=== PATIENT | male | born 1960 | race Caucasian/White ===

== ENCOUNTER → 2020-12-16 14:47 | Outpatient (BNVA) | payer MEDICARE, OTHER, SELFPAY | PROVIDERS: Family Provider Nurse Practitioner Family; PCP Nurse Practitioner Family; Visit Provider Emergency Medicine | DX: Z20.822 Contact with and (suspected) exposure to COVID-19 (principal) | CPT/HCPCS: 87635 ==

== ENCOUNTER 2020-12-20 11:21 | Outpatient (CLI) | payer MEDICARE, OTHER, SELFPAY ==
[2020-12-20 12:14] VITALS: BP 122/77; PULSE 112; RESP 18; TEMP 37.2; O2SAT 90
[2020-12-20 14:40] VITALS: BP 96/65; PULSE 104; RESP 18; TEMP 36.1; O2SAT 92
[2020-12-20 14:51] VITALS: BP 96/65; PULSE 104; RESP 18; TEMP 36.1; O2SAT 92
--- NOTE | 2020-12-23 13:30 | DCPLANNER ---
manager commodities had message that patient received the monoclonal antibody infusion. manager commodities called phone number [phone], unable to speak with patient at this time, a voicemail was left for patient with appointment information.
== END 2020-12-20 14:50 | disposition home or self-care (01) ==
LOC: OPS 11:29
PROVIDERS: PCP Nurse Practitioner Family; Visit Provider Nurse Practitioner Family
DX: U07.1 COVID-19 (principal)
CPT/HCPCS: 96365

== ENCOUNTER 2021-01-05 14:04 | Outpatient (CLI) | payer MEDICARE, OTHER, SELFPAY ==
--- NOTE | 2021-01-05 14:15 | XRR_ITS ---
PROCEDURE INFORMATION: Exam: XR Chest Exam date and time: 01/05/2021 2:15 PM Age: 60 years old Clinical indication: Cough and shortness of breath; Additional info: Follow up covid 19/asthmatic bronchitis TECHNIQUE: Imaging protocol: XR of the chest. Views: 1 view. COMPARISON: CT Cervical Spine wo* [id number] 06/12/2017 12:47 PM FINDINGS: Lungs: Interstitial scarring at the lung bases. No focal consolidation. Pleural spaces: Unremarkable. No pleural effusion. No pneumothorax. Heart/Mediastinum: Unremarkable. No cardiomegaly. Bones/joints: Sequela of ACDF in the lower cervical spine. XR/XR chest 1V [id number] IMPRESSION: No acute findings.
== END 2021-01-05 14:05 | disposition home or self-care (01) ==
LOC: RAD 14:09
PROVIDERS: PCP Nurse Practitioner Family; Visit Provider Nurse Practitioner Family
DX: U07.1 COVID-19 (principal)
CPT/HCPCS: 71045

== ENCOUNTER 2021-11-21 16:41 | Emergency (ER) | payer MEDICARE, OTHER, SELFPAY ==
[2021-11-21 16:52] VITALS: BP 114/72; PULSE 107; RESP 18; TEMP 36.4; O2SAT 96; BMI 33.6
--- NOTE | 2021-11-21 17:34 | ECG_ITS ---
[facility] Test Date: 2021-11-21 Pat Name: Maxi Valdes Department: Room: Gender: Male Instant Printer Operator: : 1960 Requested By: Alex Sunshine Order Number: [id number] Melissa MD: Alize Garza M.D. Measurements Intervals [place] Rate: 100 P: 58 NE: 166 QRS: 4 QRSD: 79 T: 58 QT: 322 QTc: 415 Interpretive Statements SINUS TACHYCARDIA ABNORMAL RHYTHM ECG INTERPRETATION BASED ON A DEFAULT AGE OF 40 YEARS No previous ECG available for comparison Electronically Signed On 11-21-2021 22:29:38 CDT by Alize Garza M.D. [id number] f
[2021-11-21 19:03] LABS: Basophils # 0.1 10^3/uL (0.0-0.1); Eosinophils # 0.3 10^3/uL (0.0-0.8); Eosinophils % 3.2 %; Hematocrit 46.6 % (42.0-52.0); Hemoglobin 16.1 g/dL (11.7-16.6); Lymphocytes % 24.5 %; Mean Corpuscular HGB Conc 34.5 g/dL (30.0-36.0); Mean Corpuscular Hemoglobin 29.4 pg (28.0-34.0); Mean Platelet Volume 9.8 fL (7.4-10.4); Monocytes # 0.8 10^3/uL (0.2-0.9); Monocytes % 9.5 %; Neutrophils # 5.07 10^3/uL (1.8-7.7); Neutrophils % 61.3 %; Nucleated Red Blood Cells % 0 %; Platelet Count 246 10^3/cmm (130-400); Red Blood Count 5.48 10^6/uL (4.1-5.3); Red Cell Distribution Width 12.9 % (12.1-15.1); White Blood Count 8.3 10^3/uL (4.0-10.0)
[2021-11-21 19:30] LABS: Troponin(5th) Baseline 14 ng/L (0-15)
[2021-11-21 19:31] LABS: Alanine Aminotransferase 18 U/L (0-41); Albumin Level 4.9 g/dL (3.5-5.2); Alkaline Phosphatase 79 IU/L (40-130); Anion Gap 19.5 (5-19); Aspartate Amino Transferase 22 U/L (0-40); Blood Urea Nitrogen 21 mg/dL (8-23); Calcium 9.7 mg/dL (8.5-10.5); Carbon Dioxide 21 mmol/L (22-29); Chloride 102 mmol/L (98-107); Globulin 2.6 g/dL (1.3-4.6); Glomerular Filtration Rate 34.3 mL/min (90-130); Glucose 78 mg/dL (65-115); Osmolality Calculated 288 mOsm/kg (285-295); Potassium 4.5 mmol/L (3.5-5.1); Sodium 138 mmol/L (136-145); Total Bilirubin 0.4 mg/dL (0.15-1.2); Total Protein 7.5 g/dL (6.6-8.7)
--- NOTE | 2021-11-21 19:34 | ECG_ITS ---
[facility] Test Date: 2021-11-21 Pat Name: Maxi Valdes Department: Room: Gender: Male Supply Officer: : 1960 Requested By: Alex Sunshine Order Number: [id number] Melissa MD: Alize Garza M.D. Measurements Intervals [place] Rate: 74 P: 55 MA: 178 QRS: 19 QRSD: 89 T: 62 QT: 375 QTc: 418 Interpretive Statements SINUS RHYTHM Compared to ECG 11/21/2021 17:00:12 Sinus tachycardia no longer present Electronically Signed On 11-21-2021 22:41:08 CDT by Alize Garza M.D. [id number]
[2021-11-21 20:12] VITALS: BP 140/91
--- NOTE | 2021-11-21 20:12 | CTR_ITS ---
PROCEDURE INFORMATION: Exam: CT Head Without Contrast Exam date and time: 11/21/2021 9:29 PM Age: 61 years old Clinical indication: Syncope and collapse; Prior surgery; Surgery date: 6+ months; Surgery type: Cervical TECHNIQUE: Imaging protocol: Computed tomography of the head without contrast. Radiation optimization: All CT scans at this facility use at least one of these dose optimization techniques: automated exposure control; mA and/or kV adjustment per patient size (includes targeted exams where dose is matched to clinical indication); or iterative reconstruction. COMPARISON: CT head wo con* [id number] 06/12/2017 12:41 PM RADIATION DOSE METRICS: Total DLP (mGy-cm): 987.39 FINDINGS: Brain: No acute intracranial hemorrhage or mass effect. No definite acute infarct by CT. MRI could be more sensitive/specific for detection, as clinically directed. Cerebral ventricles: Ventricle size is normal for age. Paranasal sinuses: Included paranasal sinuses are essentially clear. Mastoid air cells: No significant acute finding. Bones/joints: No definite acute skull fracture. Soft tissues: No significant acute finding. CT/CT head wo con* [id number] IMPRESSION: 1. No acute intracranial hemorrhage or mass effect. 2. No definite acute infarct by CT, see above. 3. Other findings discussed above.
--- NOTE | 2021-11-21 20:16 | W.ED.GENADLT ---
HPI - General Adult General: Chief complaint: Syncope Stated complaint: passed out Time Seen by Provider: 11/21/21 19:55 History of Present Illness: HPI: [61]yo patient w/ hx of HTN presents emergency after episode of witnessed syncope. Patient was leaning against the side of the door when he suddenly blacked out. Patient denies any prodromal symptoms of nausea/vomiting, diaphoresis, tunneling of vision, spots, or other complaints. Patient does not remember what happened but was witnessed by his to be pastel briefly for a minute. Patient denies any associate chest pain, shortness of breath with the episode. His denied the patient hit his head. Patient reports a mild intermittent headache since the syncope episode. Patient could not recall the incident but denies any post-ictal confusion, tongue biting or bladder/bowel incontinence. Patient denies any prior hx of syncope in the past. No associated symptoms of chest pain, shortness of breath, palpitations or focal weakness right before the incident. No family hx of sudden cardiac or unexplained . Onset: 3pm Duration: 1 minute Location: outside Severity: moderate Associated symptoms: Deny chest pain, dyspnea, nausea, rash, palpitations or vomiting Review of Systems Const: Denies: fever(s) or chills Eyes: Denies: change in vision ENMT: Denies: mouth pain Card: Denies: chest pain or palpitations Resp: Denies: dyspnea or non-productive cough GI: Denies: abdominal pain, nausea, vomiting or diarrhea : Denies: dysuria Musc: Denies: extremity pain Skin/Breast: Denies: rash or new lesions Neuro: Reports: other (syncope and collapse); Denies: weakness in extremities Psych: Reports: other (Normal mood) Floyd/Lymph: Denies: easy bruising PFS ED PFSH: Medical History Hypertension Social History Smoking and tobacco status: never smoked Alcohol intake: never Physical Exam Const: COMMON NORMALS: alert HENMT: COMMON NORMALS: atraumatic HEAD & SCALP: atraumatic MOUTH: moist mucous membranes not abnormal Eye: COMMON NORMALS: EOMs intact bilaterally and conjunctivae normal CONJUNCTIVA: Yes conjunctivae normal Neck/C-Spine: COMMON NORMALS: full ROM and supple Resp: COMMON NORMALS: normal respiratory effort and clear to auscultation bilaterally AUSCULTATION: clear to auscultation bilaterally Cardio: COMMON NORMALS: regular rate RATE: regular rate GI: COMMON NORMALS: Soft to palpation and non-tender PALPATION: Yes Soft to palpation Extremity: COMMON NORMALS: full ROM Neuro: SENSORIUM/ORIENTATION: Yes alert MOTOR EXAM: No Abnormal motor strength present and Other motor observations present (no focal motor deficits) OTHER: Mental status? Awake, alert, and oriented to self, year, month, location, and situation.? Following simple axial and appendicular commands.? Has appropriate fund of knowledge, comprehension, and insight.? Able to recall and understands pertinent aspects of medical history and current treatment status.? ? Language? Speech is fluent without word-finding difficulties.? Intact naming, expression, medical receptionist assistant, and repetition.? ? Cranial nerves? 2,3,4,6: PERRL, EOMI with no nystagmus. 5: Intact sensation to light touch, symmetric? 7: Smile symmetrical, no facial droop.? 8: Hearing grossly intact.? 9,10: Normal palate movement.? 11: Normal strength in trapezius bilaterally 12: Tongue protrudes midline.? ? Motor examination? Normal bulk & tone. Strength as follows (R/L): Delts (5/5), Biceps (5/5), Triceps (5/5), Wrist ext (5/5), hip flexors (5/5), plantarflexors (5/5), dorsiflexors (5/5). Sensation? Light Touch: Grossly intact and equal in upper and lower extremities bilaterally? Romberg: Negative.? Distal joint position sense intact ? Coordination? Hayhjf-xm-jvwy-finger movements intact without dysmetria or past-pointing.? Rapid fingertaps: preserved amplitude without decriment.? No tremor, myoclonus or truncal ataxia.? ? Gait/stance? Steady, normal narrow base gait with appropriate arm swing and turning.? Tandem gait without hesitation or loss of balance. Psych: COMMON NORMALS: speech normal SPEECH: Yes normal speech MOOD & AFFECT: Yes euthymic mood Course Vital Signs: Vital signs: Vital Signs Temperature 97.9 F 11/21/21 22:49 Pulse Rate 75 11/21/21 22:49 Respiratory Rate 16 11/21/21 22:49 Blood Pressure 121/82 11/21/21 22:49 Pulse Oximetry 99 11/21/21 22:49 MDM - General Adult Medical Decision Making [61]yo patient w/ hx of HTN presenting to the ED with syncope and collapse at 3pm. No association with chest pain, dyspnea, palpitations, or focal neurological deficits. HDS Neuro intact. Fingerstick wnl. Given history, exam and workup, presentation not consistent with seizures given a short time course, no postictal state, no seizure activity. Low suspicion for acute neurologic catastrophes to include ICH given lack of trauma, risk factors for bleeding diathesis, or neurogenic causes of syncope. Low suspicion for vascular catastrophes to include PE, thoracic aortic dissection, AAA rupture. Presentation not consistent with acute life threatening arrhythmia, structural heart disease, electrical conduction abnormalities, or ACS. Workup: EKG, fingerstick, orthostatics, troponin x 2, EKG x 2, CT head Intervention: Serial reevaluation, telemetry, PO challenge Findings: EKG: No e/o STEMI. No evidence of Brugada?s sign, delta wave, epsilon wave, significantly prolonged QTc, HOCM or malignant arrhythmia. [10:03pm] On reassessment, patient denies any syncope or near syncope episodes in the ER. Telemetry without any dysrhythmia. Troponin x 2 wnl. EKG is non ischemic. Ct imaging negative, Patient has been able to tolerate PO and ambulate in the ER without issues. Given limited to no comorbidities, no family hx of SCD, history more consistent with situational/reflex syncope vs orthostatic/decreased fluid intake, patient is unlikely to experience sudden cardiac decompensation at this time and will NOT benefit from inpatient observation/telemetry at this time. Although the incidence of paroxysmal ventricular tachycardia/VF is very unlikely, I instructed the patient to follow up with a PCP and a Hydrogen Cell Tender for further evaluation of syncope should the patient need it. I have given patient follow up with our pillowcase folder to be seen by our outpatient Cardiology for syncope. Patient aware of a call from our pillowcase folder to schedule for appointment(s) and verbalizes understanding of the importance of following up. Disposition: Discharge. Patient is at baseline at this time. Return precautions expressed and understood in person. Advised follow up with a primary care provider or clinic physician in the next 24-48 hours. Given return instructions for any new or concerning symptoms including chest pain, focal neurological deficits, dyspnea, or any new or concerning findings. Lab Data : 11/21/21 18:47 11/21/21 18:[address] 11/21/21 20:12 IMPRESSION: 1. No acute intracranial hemorrhage or mass effect. 2. No definite acute infarct by CT, see above. 3. Other findings discussed above. Laboratory Results WBC 8.3 10^3/uL (4.0-10.0) 11/21/21 18:47 RBC 5.48 10^6/uL (4.1-5.3) H 11/21/21 18:47 Hgb 16.1 g/dL (11.7-16.6) 11/21/21 18:47 Hct 46.6 % (42.0-52.0) 11/21/21 18:47 MCV 85.0 fl (80-94) 11/21/21 18:47 MCH 29.4 pg (28.0-34.0) 11/21/21 18:47 MCHC 34.5 g/dL (30.0-36.0) 11/21/21 18:47 RDW 12.9 % (12.1-15.1) 11/21/21 18:47 Plt Count 246 10^3/cmm (130-400) 11/21/21 18:47 MPV 9.8 fL (7.4-10.4) 11/21/21 18:47 Neut % (Auto) 61.3 % 11/21/21 18:47 Lymph % (Auto) 24.5 % 11/21/21 18:47 [place]verse % (Auto) 9.5 % 11/21/21 18:47 Eos % (Auto) 3.2 % 11/21/21 18:47 Baso % (Auto) 1.0 % 11/21/21 18:47 Neut # (Auto) 5.07 10^3/uL (1.8-7.7) 11/21/21 18:47 Lymph # (Auto) 2.0 10^3/uL (0.8-4.8) 11/21/21 18:47 [place] # (Auto) 0.8 10^3/uL (0.2-0.9) 11/21/21 18:47 Eos # (Auto) 0.3 10^3/uL (0.0-0.8) 11/21/21 18:47 Baso # (Auto) 0.1 10^3/uL (0.0-0.1) 11/21/21 18:47 Nucleated RBC % (auto) 0 % 11/21/21 18:47 Nucleated RBCs # 0.0 /100WBC 11/21/21 18:47 Sodium 138 mmol/L (136-145) 11/21/21 18:47 Potassium 4.5 mmol/L (3.5-5.1) 11/21/21 18:47 Chloride 102 mmol/L (98-107) 11/21/21 18:47 Carbon Dioxide 21 mmol/L (22-29) L 11/21/21 18:47 Anion Gap 19.5 (5-19) H 11/21/21 18:47 BUN 21 mg/dL (8-23) 11/21/21 18:47 Creatinine 2.0 mg/dL (0.7-1.2) H 11/21/21 18:47 GFR Calculation 34.3 mL/min (90-130) L 11/21/21 18:47 Glucose 78 mg/dL (65-115) 11/21/21 18:47 Calculated Osmolality 288 mOsm/kg (285-295) 11/21/21 18:47 Calcium 9.7 mg/dL (8.5-10.5) 11/21/21 18:47 Total Bilirubin 0.4 mg/dL (0.15-1.2) 11/21/21 18:47 AST 22 U/L (0-40) 11/21/21 18:47 ALT 18 U/L (0-41) 11/21/21 18:47 Alkaline Phosphatase 79 IU/L (40-130) 11/21/21 18:47 Troponin T Baseline 14 ng/L (0-15) 11/21/21 18:47 Troponin T 120 Minute 14.94 ng/L (0-15) 11/21/21 20:47 Delta Troponin T 0.94 ABS# (0-10) 11/21/21 20:47 Total Protein 7.5 g/dL (6.6-8.7) 11/21/21 18:47 Albumin 4.9 g/dL (3.5-5.2) 11/21/21 18:47 Globulin 2.6 g/dL (1.3-4.6) 11/21/21 18:47 Imaging Data Other Imaging: Radiologist's impression: [facility] [address] [place] [address] CT Scan Report Signed Patient: Maxi Valdes Unit #: [id number] : 1960 Age/Sex: 61 / M ADM Date: 11/21/21 Loc: ER Room/Bed: Attending Dr: Ordering Provider/Ordering MD: Albertina Rodriguez MD Date of Service: 11/21/21 Procedure(s): CT head wo con* [id number] Accession Number(s): [id number] Report Number: [id number] PROCEDURE INFORMATION: Exam: CT Head Without Contrast Exam date and time: 11/21/2021 9:29 PM Age: 61 years old Clinical indication: Syncope and collapse; Prior surgery; Surgery date: 6+ months; Surgery type: Cervical TECHNIQUE: Imaging protocol: Computed tomography of the head without contrast. Radiation optimization: All CT scans at this facility use at least one of these dose optimization techniques: automated exposure control; mA and/or kV adjustment per patient size (includes targeted exams where dose is matched to clinical indication); or iterative reconstruction. COMPARISON: CT head wo con* [id number] 06/12/2017 12:41 PM RADIATION DOSE METRICS: Total DLP (mGy-cm): 987.39 FINDINGS: Brain: No acute intracranial hemorrhage or mass effect. ?No definite acute infarct by CT. MRI could be more sensitive/specific for detection, as clinically directed. Cerebral ventricles: Ventricle size is normal for age. Paranasal sinuses: Included paranasal sinuses are essentially clear. Mastoid air cells: No significant acute finding. Bones/joints: No definite acute skull fracture. Soft tissues: No significant acute finding. CT/CT head wo con* [id number] IMPRESSION: 1. No acute intracranial hemorrhage or mass effect. 2. No definite acute infarct by CT, see above. 3. Other findings discussed above. ? Dictated By: Vel Hong MD Signed By: Vel Hong MD Signed Date/Time: 06/2235 DD/ [address] [address] XRay Report Signed Patient: Maxi Valdes Unit #: [id number] : 1960 Age/Sex: 60 / M ADM Date: 01/05/21 Loc: RAD Room/Bed: Attending Dr: Dayna Alfred APN Ordering Provider/Ordering MD: Dayna Alfred APN- Date of Service: 01/05/21 Procedure(s): XR chest 1V 66373 Accession Number(s): [id number] Report Number: [id number] PROCEDURE INFORMATION: Exam: XR Chest Exam date and time: 01/05/2021 2:15 PM Age: 60 years old Clinical indication: Cough and shortness of breath; Additional info: Follow up covid 19/asthmatic bronchitis TECHNIQUE: Imaging protocol: XR of the chest. Views: 1 view. COMPARISON: CT Cervical Spine wo* [id number] 06/12/2017 12:47 PM FINDINGS: Lungs: Interstitial scarring at the lung bases. No focal consolidation. Pleural spaces: Unremarkable. No pleural effusion. No pneumothorax. Heart/Mediastinum: Unremarkable. No cardiomegaly. Bones/joints: Sequela of ACDF in the lower cervical spine. XR/XR chest 1V 95511 IMPRESSION: No acute findings. ? Dictated By: Rajat Joe DO Signed By: Rajat Joe DO Signed Date/Time: 01/05/21 1502 DD/ 1501 Discharge Plan Discharge Patient Disposition: Home Clinical Impression: Syncope and collapse Condition: Stable Prescriptions: No Action Sudafed 24 Hour 240 mg tablet extended release 24 hr 240 mg PO DAILY 0RF acetaminophen [Tylenol] 325 mg capsule 325 mg PO QID PRN0RF Discharge Orders: Discharge ED (Routine); Ordered 11/21/21 Ordered By: Albertina Rodriguez Referrals: Dayna Alfred APN [Primary Care Provider] - Discharge Diet: Advance as tolerated Discharge Activity: Increase activity as tolerated Patient Instructions: Near Syncope (ED) Activity Restrictions/Additional Instructions: Please come back to the emergency room for any more breakthrough episodes of passing out. Come back if any weakness in her arms, drooling, difficulty speaking, any neurological symptoms, chest pain/shortness of breath/palpitation or any new or concerning issues. Please do not swim, bathe, operate heavy machinery or drive a vehicle unattended. Our pillowcase folder will have you follow-up with a Hydrogen Cell Tender in the next few days. You would be expected to have a phone call with our pillowcase folder who will put you on the schedule. You can expect a call from us in the next 2-3 days. If you don't hear from us, call us back in the emergency room at [phone]. Coding Level of Care Code ED Principal Java Software Engineer for Ella Fwpierre Exam Comprehensive
[2021-11-21 20:25] VITALS: BP 127/83
[2021-11-21 20:40] VITALS: BP 137/82
[2021-11-21 21:28] LABS: Troponin 5 2HR 14.94 ng/L (0-15)
[2021-11-21 21:38] LABS: Troponin 5 2HR Delta 0.94 ABS# (0-10)
[2021-11-21 21:40] VITALS: BP 117/80; PULSE 79; RESP 16; O2SAT 99
[2021-11-21] MEDS: sodium chloride 0.9% 1,000 ML 999 ML IV (21:41)
[2021-11-21 22:49] VITALS: BP 121/82; PULSE 75; RESP 16; TEMP 36.6; O2SAT 99
--- NOTE | 2021-11-22 09:49 | PC.SOCIAL ---
Addendum entered by Carli Harvey 01/23/22 16:41: Patient had a follow up appointment scheduled with heart care - patient did attend appointment. Addendum entered by Carli Harvey 12/15/21 16:04: Patient has a follow up appointment scheduled for Saturday, January 17, 2022 at 10:[address] Garza at [facility]. Clinic will call patient with appointment information. Original Note: Cardiology Follow-Up Message request to cardiology requesting follow up appointment. Clinic will call patient with appointment.
== END 2021-11-21 22:51 | disposition home or self-care (01) ==
PROVIDERS: Nurse Practitioner Family; Emergency Provider Emergency Medicine; PCP Nurse Practitioner Family
DX: R55 Syncope and collapse (principal); I10 Essential (primary) hypertension
CPT/HCPCS: 70450; 80053; 84484; 85025; 93005; 96360; 99284; J7030

== ENCOUNTER → 2022-01-17 10:43 | Outpatient (BNVA) | payer MEDICARE, OTHER, SELFPAY | PROVIDERS: PCP Nurse Practitioner Family; Visit Provider Internal Medicine Cardiovascular Disease | DX: R55 Syncope and collapse (principal); I10 Essential (primary) hypertension; M54.9 Dorsalgia, unspecified; G89.29 Other chronic pain | CPT/HCPCS: 99204 ==

== ENCOUNTER 2022-04-10 14:19 | Outpatient (CLI) | payer MEDICARE, OTHER, SELFPAY ==
--- NOTE | 2022-04-10 14:30 | USCV_ITS ---
Maxi Valdes Age: 62 Gender: M : 1960 Exam Date: 04/10/2022 14:39 Ordering Phys: Alize Garza MD ([email or web address]) Technologist: Orlando Brito Exam Location: [facility] [place] Indication: syncope BP: 122 / 84 HR: 74 Rhythm: Sinus Technical Quality: Adequate MEASUREMENTS (Male / Female) Normal Values 2D ECHO LV Diastolic Diameter PLAX 3.5 cm 4.2 - 5.9 / 3.9 - 5.3 cm LV Systolic Diameter PLAX 2.4 cm IVS Diastolic Thickness 0.8 cm 0.6 - 1.0 / 0.6 - 0.9 cm IVS Systolic Thickness 0.9 cm LVPW Diastolic Thickness 0.6 cm 0.6 - 1.0 / 0.6 - 0.9 cm LVPW Systolic Thickness 1.2 cm LVOT Diameter 2.0 cm LV Ejection Fraction 2D Teich 58.9 % LV Ejection Fraction MOD 2C 65.5 % LV Ejection Fraction 2C AL 63.7 % LA Diameter 2.9 cm LA Width 2.6 cm LA Height 4.3 cm RA Width 2.6 cm RA Height 3.9 cm Aorta at Sinotubular Diameter 1.9 cm IVC Diameter 1.6 cm M-MODE Aortic Annulus Diameter 2.7 cm LA Ao Ratio MM 1.1 MV E Point Septal Separation 0.5 cm DOPPLER AV Peak Velocity 138.3 cm/s LVOT Peak Velocity 126.0 cm/s AV Area Cont Eq vti 2.6 cm squared AV Area Cont Eq pk 2.9 cm squared MV Peak Velocity 90.0 cm/s MV Area PHT 5.6 cm squared Mitral E to A Ratio 0.6 MV E' Velocity 34.0 cm/s Mitral E to MV E' Ratio 6.9 Mitral E to LV E' Lateral Ratio 6.1 Mitral E to LV E' Septal Ratio 8.0 TR Peak Velocity 137.8 cm/s TR Peak Gradient 7.6 mmHg TR Mean Velocity 115.3 cm/s TR Mean Gradient 6.8 mmHg TR Velocity Time Integral 31.5 cm Right Atrial Pressure 3.0 mmHg Pulmonary Artery Systolic Pressu 10.6 mmHg PV Peak Velocity 92.0 cm/s RV Acceleration Time 0.1 s RV Ejection Time 0.3 s RV AcT/ET 0.4 FINDINGS Left Ventricle Normal left ventricular size and systolic function, EF 59 %. No regional wall motion abnormalities. Grade I/IV diastolic dysfunction (abnormal relaxation filling pattern), normal to mildly elevated filling pressures. Right Ventricle The right ventricle is normal in size and function. Right Atrium The right atrium is normal in size. Left Atrium The left atrium is normal in size. Mitral Valve Mild mitral annular calcification. Aortic Valve Thickened aortic valve. Tricuspid Valve No gross abnormalities noted Pulmonic Valve Pulmonic valve not well visualized. Pericardium Normal pericardium without effusion. Aorta Normal ascending aorta dimension. IVC Normal inferior vena cava. CONCLUSIONS Normal left ventricular size and systolic function, EF 59 %. No regional wall motion abnormalities. Grade I/IV diastolic dysfunction (abnormal relaxation filling pattern), normal to mildly elevated filling pressures. Mild mitral annular calcification. Thickened aortic valve. There is no pericardial effusion. There are no intracardiac masses. No similar previous studies are available for comparison Dr Alize Garza MD [facility] (Electronically Signed) Final Date: 10 April 2022 20:48 S
== END 2022-04-10 14:20 | disposition home or self-care (01) ==
LOC: RAD 14:20
PROVIDERS: PCP Nurse Practitioner Family; Visit Provider Internal Medicine Cardiovascular Disease
DX: R06.09 Other forms of dyspnea (principal); R55 Syncope and collapse; I34.81 Nonrheumatic mitral (valve) annulus calcification; I35.8 Other nonrheumatic aortic valve disorders
CPT/HCPCS: 93306

== ENCOUNTER → 2022-04-18 10:15 | Outpatient (BNVA) | payer MEDICARE, OTHER, SELFPAY | PROVIDERS: PCP Nurse Practitioner Family; Visit Provider Internal Medicine Cardiovascular Disease | DX: M54.9 Dorsalgia, unspecified (principal); G89.29 Other chronic pain; I10 Essential (primary) hypertension; R55 Syncope and collapse; I51.9 Heart disease, unspecified | CPT/HCPCS: 99214 ==

== ENCOUNTER 2022-05-07 12:42 | Outpatient (CLI) | payer MEDICARE, OTHER, SELFPAY ==
[2022-05-07 12:59] VITALS: BMI 34.1
--- NOTE | 2022-05-07 13:01 | ECG_ITS ---
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 Interpretive Statements NAME OF STUDY: TREADMILL STRESS TEST INDICATION: [SYNCOPE, ] EXERCISE DATA: The patient was exercised by Ezra protocol. Baseline heart rate was 63 beats per minute. Baseline blood pressure was 118/72 millimeters of mercury. Target heart rate was 135 beats per minute. Maximum heart rate achieved was 143 which was 105 % of the target heart rate. Maximum blood pressure was 142/62 millimeters of mercury. Total exercise time was 7 minutes and 1 seconds. Maximum METs achieved was 10.2. The reason for ending the test was completion of the protocol. The patient complained of shortness of breath during the stress test, which then resolved at the end of the test. ELECTROCARDIOGRAM: BASELINE: Showed sinus rhythm, normal axis, no significant ST-T changes at the baseline noted. [] EXERCISE: At the peak exercise level, [] 2mm ST depressions seen in the inferior leads. RECOVERY: During the recovery period, heart rate dropped appropriately. Inferior leads ST depressions persisted [] CONCLUSION: 1. Exercise capacity fair 2. Heart rate response was appropriate 3. Blood pressure response was appropriate 4. Symptoms not suggestive of ischemia. 5. Stress test is positive for ischemia with ST depressions noted in inferior leads II, III, aVF. Electronically Signed On 05-27-2022 13:10:43 CITRUS PEELER by Jeronimo Tillman M.D. [id number]
[2022-05-07 13:39] VITALS: BP 124/54; PULSE 97
== END 2022-05-07 12:43 | disposition home or self-care (01) ==
LOC: CDL 12:43
PROVIDERS: PCP Nurse Practitioner Family; Visit Provider Internal Medicine Cardiovascular Disease
DX: R55 Syncope and collapse (principal); R06.02 Shortness of breath
CPT/HCPCS: 93017

== ENCOUNTER → 2022-06-07 09:55 | Outpatient (BNVA) | payer MEDICARE, OTHER, SELFPAY | PROVIDERS: PCP Nurse Practitioner Family; Visit Provider Internal Medicine Cardiovascular Disease | DX: R94.39 Abnormal result of other cardiovascular function study (principal); R55 Syncope and collapse; M54.9 Dorsalgia, unspecified; G89.29 Other chronic pain; I11.9 Hypertensive heart disease without heart failure | CPT/HCPCS: 99214 ==